=== PATIENT | female | born 2000 | race Caucasian/White ===

== ENCOUNTER 2020-11-04 10:26 | Emergency (ER) | payer OTHER ==
[2020-11-04] MEDS: Tetracaine HCl/PF 0.5% 4 ML Bottle EYEBOTH ONE (10:27)
--- NOTE | 2020-11-04 10:28 | EDM.PDOC ---
ED HPI GENERAL MEDICAL PROBLEM - General Chief Complaint: ENT Problem Stated Complaint: POSSIBLE FOREIGN BODY IN EYE Time Seen by Provider: 11/04/20 10:28 Source of Information: Reports: Patient History Limitations: Reports: No Limitations - History of Present Illness INITIAL COMMENTS - FREE TEXT/NARRATIVE: 20 YO WF PRESENTS TO ER COMPLAINING OF FOREIGN BODY IN RIGHT EYE. PT REPORTS SHE WAS GRINDING AND FELT SOMETHING FLY INTO HER EYE. PT DENIES ANY VISUAL CHANGES, NO EYE PAIN, NO EYE REDNESS OR SWELLING. PT REPORTS THIS OCCURRED JUST PRIOR TO ARRIVAL. PT DENIES ANY OTHER INJURIES OR COMPLAINTS AT THIS TIME. Onset: Today Location: Reports: Face Quality: Reports: Other (FOREIGN BODY SENSATION) Improves with: Reports: None Worsens with: Reports: None Right Eye Pain Score (Numeric/FACES): 5 - Related Data Allergies Allergy/AdvReac Type Severity Reaction Status Date / Time No Known Allergies Allergy Verified 11/04/20 10:52 Home Meds: Home Meds Ciprofloxacin [Ciloxan 0.3% Ophth Soln] 2 drop EYERT Q4H 3 Days #1 bottle 11/04/20 [Rx] ED ROS GENERAL - Review of Systems Review Of Systems: See Below Constitutional: Reports: No Symptoms HEENT: Reports: Eye Pain. Denies: Eye Discharge, Glasses, Vision Change Respiratory: Reports: No Symptoms Cardiovascular: Reports: No Symptoms Endocrine: Reports: No Symptoms GI/Abdominal: Reports: No Symptoms : Reports: No Symptoms Musculoskeletal: Reports: No Symptoms Skin: Reports: No Symptoms Neurological: Reports: No Symptoms Psychiatric: Reports: No Symptoms Hematologic/Lymphatic: Reports: No Symptoms Immunologic: Reports: No Symptoms ED EXAM GENERAL W FULL EYE - Physical Exam Exam: See Below Exam Limited By: No Limitations General Appearance: Alert, WD/WN, No Apparent Distress Eye Exam: Right Eye: Foreign Body, Bilateral Eye: Corneal Abrasion, EOMI, PERRL Visual Acuity (R) 20/: 40 Visual Acuity (L) 20/: 30 With Correction: No Eyelids: Bilateral: Normal Appearance Conjunctiva & Sclera: Right: Foreign Body, Left: Normal Appearance Cornea Exam: Bilateral: Normal Appearance Extraocular Movements: Bilateral: Intact Pupils: Normal Accommodation Pupillary Size: Bilateral: 3 mm Pupillary Reaction: Bilateral: Brisk Anterior Chamber: Bilateral: Normal Appearance Head: Atraumatic, Normocephalic Neck: Normal Inspection, Supple, Non-Tender, Full Range of Motion Respiratory/Chest: No Respiratory Distress, Lungs Clear, Normal Breath Sounds, No Accessory Muscle Use, Chest Non-Tender Cardiovascular: Normal Peripheral Pulses, Regular Rate, Rhythm, No Edema, No Gallop, No JVD, No Murmur, No Rub Extremities: Normal Inspection, Normal Range of Motion, Non-Tender, Normal Capillary Refill, No Pedal Edema Neurological: Alert, Oriented, CN II-XII Intact, Normal Cognition, Normal Gait, No Motor/Sensory Deficits Psychiatric: Normal Affect, Normal Mood Skin Exam: Warm, Dry, Intact, Normal Color, No Rash Lymphatic: No Adenopathy ED EYE w/ Add Procedure - Eye Procedure Alcaine Drops Administered: Yes Eye FB Removal: Removal w/ Cotton Swab Eye Irrigated w/ Saline (ccs): 20 Antibiotic Oinment/Drps Admin: Right Eye Course - Vital Signs Last Recorded V/S: Last Vital Signs Temp 97.1 F 11/04/20 10:46 Pulse 81 11/04/20 10:46 Resp 16 11/04/20 10:46 BP 119/68 11/04/20 10:46 Pulse Ox 99 11/04/20 10:46 - Orders/Labs/Meds Orders: Active Orders 24 hr Category Date Time Status Visual Acuity [Vision Test] [RC] ASDIRECTED Care 11/04/20 11:03 Ordered Meds: Medications Discontinued Medications Generic Name Dose Route Start Last Admin Trade Name Freq PRN Reason Stop Dose Admin Tetracaine HCl 1 ml 11/04/20 10:27 Tetracaine Hcl/Pf 0.5% 4 Ml Bottle EYEBOTH 11/04/20 10:28 ASDIRECTED ONE Departure - Departure Time of Disposition: 11:09 Disposition: Home, Self-Care 01 Condition: Good Clinical Impression: Foreign body of right eye Qualifiers: Encounter type: initial encounter Qualified Code(s): T15.91XA - Foreign body on external eye, part unspecified, right eye, initial encounter - Discharge Information Prescriptions: Ciprofloxacin [Ciloxan 0.3% Ophth Soln] 2 drop EYERT Q4H 3 Days #1 bottle Instructions: Eye Foreign Body, [id number] Referrals: Zuly Aggarwal MD [Primary Care Provider] - Forms: ED Department Discharge Additional Instructions: 1. DISCHARGE HOME 2. CILOXAN GTT EVERY 4 HOURS X 3 DAYS 3. WEAR SAFETY GOGGLES 4. FOLLOW UP WITH PCP FOR FURTHER EVALUATION NEEDED 5. RETURN TO ER FOR WORSENING SYMPTOMS Sepsis Event Note (ED) - Focused Exam Vital Signs: Vital Signs Temp Pulse Resp BP Pulse Ox 11/04/20 10:46 97.1 F 81 16 119/68 99 - My Orders Last 24 Hours: My Active Orders 11/04/20 11:03 Visual Acuity [Vision Test] [RC] ASDIRECTED - Assessment/Plan Last 24 Hours: My Active Orders 11/04/20 11:03 Visual Acuity [Vision Test] [RC] ASDIRECTED Assessment:: 1. FOREIGN BODY TO RIGHT EYE WITHOUT CORNEAL ABRASION- REMOVED SUCCESSFULLY WITH COTTON SWAP Plan: 1. DISCHARGE HOME 2. CILOXAN GTT EVERY 4 HOURS X 3 DAYS 3. WEAR SAFETY GOGGLES 4. FOLLOW UP WITH PCP FOR FURTHER EVALUATION NEEDED 5. RETURN TO ER FOR WORSENING SYMPTOMS
== END 2020-11-04 11:28 | disposition home or self-care (01) ==
LOC: KA.ED 10:26
DX: T15.91XA Foreign body on external eye, part unspecified, right eye, initial encounter (principal)
CPT/HCPCS: 65205; 65220; 99283; 99283-25